=== PATIENT | male | born 1940 | race Caucasian/White ===

== ENCOUNTER 2023-09-17 16:55 | Observation (INO) | payer MEDICARE, OTHER ==
[2023-09-17] MEDS: Ondansetron 4 MG/2 ML SDV IVPUSH ONE ×2 (17:00→17:45)
[2023-09-17] MEDS: Sodium Chloride 0.9% 1,000 ML IV SCH ×2 (17:09→20:48)
[2023-09-17] MEDS: Ondansetron 4 MG/2 ML SDV ONE (17:10)
[2023-09-17 17:30] LABS: BASOPHILS ABSOLUTE AUTO 0.02 K/uL (0.00-0.20); BASOPHILS PERCENT AUTO 0.1 % (0.0-2.0); EOSINOPHILS ABSOLUTE AUTO 0.07 K/uL (0.00-0.50); EOSINOPHILS PERCENT AUTO 0.5 % (0.0-5.0); HEMATOCRIT 39.8 % (39.0-49.0); HEMOGLOBIN 13.9 g/dL (13.1-16.8); LYMPHOCYTES PERCENT AUTO 6.3 % (10.0-50.0); MEAN CORPUSCULAR HEMOGLOBIN 32.9 pg (28.2-33.3); MEAN CORPUSCULAR HGB CONC 34.9 g/dL (31.7-36.0); MEAN CORPUSCULAR VOLUME 94.3 fL (84.0-98.0); MONOCYTES ABSOLUTE AUTO 0.65 K/uL (0.00-1.00); MONOCYTES PERCENT AUTO 4.6 % (2.0-14.0); NEUTROPHILS ABSOLUTE AUTO 12.54 K/uL (1.40-7.00); NEUTROPHILS PERCENT AUTO 88.5 % (45.0-80.0); PLATELET COUNT,PLT 219 K/uL (150-350); RED BLOOD CELL COUNT 4.22 M/uL (4.33-5.41); RED CELL DISTRIBUTION WIDTH 12.8 % (11.2-14.1); WHITE BLOOD CELL COUNT,WBC 14.2 K/uL (4.0-10.2)
[2023-09-17 17:41] LABS: ALBUMIN 4.9 g/dL (3.4-5.0); ANION GAP 11.6 meq/L (7-15); BILIRUBIN TOTAL 0.7 mg/dL (0.2-1.0); CALCIUM 9.8 mg/dL (8.5-10.1); CARBON DIOXIDE,CO2 28.4 mmol/L (21.0-32.0); CREATININE 1.43 mg/dL (0.51-1.17); EST CRCL DRUG DOSING (CG) 39.83 mL/min; MAGNESIUM 1.4 mg/dL (1.8-2.4); POTASSIUM,K 3.6 mmol/L (3.5-5.1); PROTEIN TOTAL,TP 8.1 g/dL (6.4-8.2)
[2023-09-17] MEDS: Dicyclomine 20 MG Tab PO ONE (17:54)
[2023-09-17] MEDS: Loperamide 2 MG Tab PO ONE (17:54)
[2023-09-17 18:02] LABS: CORONAVIRUS COVID-19 NAA NEGATIVE (NEGATIVE); INFLUENZA A NAA NEGATIVE (NEGATIVE); INFLUENZA B NAA NEGATIVE (NEGATIVE); RESPIRATORY SYNCYTIAL VIR NAA NEGATIVE (NEGATIVE)
[2023-09-17] MEDS ORDERED: Acetaminophen 325 MG Tab PO PRN (18:53)
[2023-09-17] MEDS ORDERED: Ondansetron 4 MG/2 ML SDV IVPUSH PRN (19:00)
[2023-09-17] MEDS ORDERED: Loperamide 2 MG Tab PO PRN (19:01)
[2023-09-17] MEDS: Magnesium Sulfate/Water 2 GM in Premix Bag 1 BAG IV ONE (19:48)
[2023-09-17] MEDS: Metoprolol Tartrate 25 MG Tab PO SCH (20:45)
[2023-09-17] MEDS: Lisinopril 20 MG Tab PO SCH (20:45)
[2023-09-18] MEDS: Sodium Chloride 0.9% 10 ML Syringe FLUSH PRN (07:05)
[2023-09-18 07:19] LABS: BASOPHILS ABSOLUTE AUTO 0.01 K/uL (0.00-0.20); BASOPHILS PERCENT AUTO 0.1 % (0.0-2.0); EOSINOPHILS ABSOLUTE AUTO 0.05 K/uL (0.00-0.50); EOSINOPHILS PERCENT AUTO 0.7 % (0.0-5.0); HEMATOCRIT 30.6 % (39.0-49.0); HEMOGLOBIN 10.7 g/dL (13.1-16.8); LYMPHOCYTES ABSOLUTE AUTO 0.77 K/uL (0.50-3.50); LYMPHOCYTES PERCENT AUTO 10.4 % (10.0-50.0); MEAN CORPUSCULAR HEMOGLOBIN 33.3 pg (28.2-33.3); MEAN CORPUSCULAR VOLUME 95.3 fL (84.0-98.0); MONOCYTES PERCENT AUTO 8.1 % (2.0-14.0); NEUTROPHILS ABSOLUTE AUTO 5.99 K/uL (1.40-7.00); NEUTROPHILS PERCENT AUTO 80.7 % (45.0-80.0); PLATELET COUNT,PLT 139 K/uL (150-350); RED BLOOD CELL COUNT 3.21 M/uL (4.33-5.41); RED CELL DISTRIBUTION WIDTH 12.7 % (11.2-14.1); WHITE BLOOD CELL COUNT,WBC 7.4 K/uL (4.0-10.2)
[2023-09-18 07:30] LABS: ANION GAP 7.2 meq/L (7-15); CALCIUM 7.8 mg/dL (8.5-10.1); CARBON DIOXIDE,CO2 26.8 mmol/L (21.0-32.0); CREATININE 1.03 mg/dL (0.51-1.17); EST CRCL DRUG DOSING (CG) 55.29 mL/min; MAGNESIUM 1.8 mg/dL (1.8-2.4); POTASSIUM,K 3.9 mmol/L (3.5-5.1)
[2023-09-18 10:26] VITALS: BP 120/65; PULSE 59
== END 2023-09-18 11:09 | disposition home or self-care (01) ==
LOC: LL.ED 16:55 → LL.MS 18:37
PROVIDERS: ADMIT Emergency Medicine; ATTEND Emergency Medicine
DX: K52.9 Noninfective gastroenteritis and colitis, unspecified (principal); I10 Essential (primary) hypertension; E78.00 Pure hypercholesterolemia, unspecified; E86.0 Dehydration; E83.42 Hypomagnesemia; Z79.82 Long term (current) use of aspirin; Z79.899 Other long term (current) drug therapy; Z20.822 Contact with and (suspected) exposure to COVID-19
CPT/HCPCS: 0241U; 36415; 74019; 80048; 80053; 83605; 83735; 85025; 96361; 96365; 96366; 96374; 96375; 96376; 99285-25; A9270-GY; G0378; J2405; J3475; J3490; J7030